=== PATIENT | female | born 1945 | race Caucasian/White ===

== ENCOUNTER 2016-07-27 09:58 | Outpatient (CLI) | payer MEDICARE ==
--- NOTE | 2016-07-24 12:32 | CT Report ---
CT OF THE ABDOMEN AND PELVIS WITH AND WITHOUT CONTRAST: 07/24/2016 CLINICAL INDICATION: Metastatic left breast cancer restaging. TECHNIQUE: Axial CT images of the abdomen and pelvis were obtained prior to and following 100 mL of I sovue-300 intravenously, as requested. Oral contrast was also administered. COMPARISON: 04/04/2015. FINDINGS: ABDOMEN: Small nonobstructing renal calculi are noted on the unenhanced exam. The kidneys demonstrate symmetric uptake and excretion of contrast. The liver, spleen, pancreas, and adrenal glands appear u nremarkable. The gallbladder is not dilated. No bowel dilatation, free gas, or free fluid is present. No abdominal adenopathy is seen. PELVIS: The appendix is seen in the right lower quadrant, and is normal in caliber. Sigmoid diverticu losis is present, without CT evidence of diverticulitis. No pelvic adenopathy or free fluid is presen t. The osseous structures demonstrate sclerotic metastatic disease. IMPRESSION: BONY METASTATIC DISEASE. SMALL NONOBSTRUCTING RENAL CALCULI. In accordance with CT protocol optimization, one or more of the following dose reduction techniques w ere utilized for this exam: automated exposure control, adjustment of mA and/or KV based on patient size, or use of iterative reconstructive technique. JOB #: [id number] EXT JOB #:[id number]
--- NOTE | 2016-07-24 12:41 | CT Report ---
CT CHEST WITH AND WITHOUT CONTRAST: 07/24/2016 CLINICAL INDICATION: Metastatic left breast cancer. TECHNIQUE: As requested, axial CT images of the chest were obtained prior to and following 100 mL Is ovue-300 intravenously. In accordance with CT protocol optimization, one or more of the following dose reduction techniques w ere utilized for this exam: automated exposure control, adjustment of mA and/or KV based on patient size, or use of iterative reconstructive technique. COMPARISON: 03/10/2015 FINDINGS: The heart and great vessels demonstrate atherosclerotic calcifications. Previously seen a bnormal anterior mediastinal soft tissue has decreased in prominence. No new hilar or mediastinal ly mphadenopathy is present. Previously seen mass in the lateral left breast appears unchanged. Abnorm al appearing left axillary lymph node is again noted. The lungs again demonstrate multifocal atelect asis. The 6-mm nodule in the right upper lobe is stable (axial image 16). Other previously describe d ground-glass opacities have resolved. No effusion or pneumothorax is present. Blastic metastatic disease is again noted. Please also refer to separate CT of the abdomen and pelvis. IMPRESSION: STABLE NODULE IN THE POSTERIOR RIGHT UPPER LOBE. STABLE SCATTERED ATELECTASIS. STABLE APPEARANCE OF MASS IN THE LATERAL LEFT BREAST AND ABNORMAL LEFT AXILLARY LYMPH NODE. JOB #: [id number] EXT JOB #:[id number]
[~2016-07-27 09:58] MED LIST: IOPAMIDOL-300 100 ML VIAL IVP ONE; IOPAMIDOL-300 50 ML VIAL PO ONE
== END 2016-07-27 09:59 | disposition home or self-care (01) ==
LOC: DI 09:58
PROVIDERS: ATTEND Internal Medicine Hematology & Oncology
DX: C50.912 Malignant neoplasm of unspecified site of left female breast (principal); C79.51 Secondary malignant neoplasm of bone; C78.00 Secondary malignant neoplasm of unspecified lung; N20.0 Calculus of kidney; J98.11 Atelectasis
CPT/HCPCS: 71270; 74178; 78306; A9503; Q9967

== ENCOUNTER 2017-05-25 09:45 | Outpatient (CLI) | payer MEDICARE, MEDICAID ==
[2017-05-25] MEDS ORDERED: IOPAMIDOL-300 50 ML VIAL ONE (10:02)
[2017-05-25] MEDS ORDERED: IOPAMIDOL-300 100 ML VIAL ONE (10:02)
[2017-05-25] MEDS ORDERED: IOPAMIDOL-300 50 ML VIAL PO ONE (12:42)
[2017-05-25] MEDS ORDERED: IOPAMIDOL-300 100 ML VIAL IVP ONE (12:42)
--- NOTE | 2017-05-25 12:47 | CT Report ---
CT CHEST WITH CONTRAST: 05/25/2017 CLINICAL INDICATION: Metastatic breast cancer. TECHNIQUE: Axial CT images of the chest were obtained with 100 mL Isovue 300 intravenously. COMPARISON: 07/24/2016. FINDINGS: The heart and great vessels demonstrate atherosclerotic calcification. No hilar or mediastinal lymphadenopathy is present. The previously noted tiny nodule in the posterior right upper lobe is stable. No new nodule is seen. Scattered atelectasis is present. No effusion or pneumothorax is seen. Osseous structures demonstrate sclerotic foci and degenerative changes without significant interval change. IMPRESSION: NO SIGNIFICANT INTERVAL CHANGE. CT DOSE REDUCTION STATEMENT In accordance with CT protocol optimization, one or more of the following dose reduction techniques were utilized for this exam: automated exposure control, adjustment of mA and/or KV based on patient size, or use of iterative reconstructive technique. TD: 05/25/2017 12:45 MTDD
--- NOTE | 2017-05-25 12:49 | CT Report ---
CT ABDOMEN AND PELVIS WITH CONTRAST: 05/25/2017 CLINICAL INDICATION: Metastatic breast cancer. COMPARISON: 07/24/2016. TECHNIQUE: Axial CT images of the abdomen and pelvis were obtained with 100 mL Isovue 300 intravenously as well as oral contrast. FINDINGS: ABDOMEN: The liver, spleen, pancreas, kidneys and adrenal glands appear unremarkable. The gallbladder is not dilated. No bowel dilatation, free gas, or free fluid is present. No abdominal adenopathy is present. PELVIS: The appendix is seen in the right lower quadrant, and is normal in caliber. Colonic diverticulosis is present, without CT evidence of diverticulitis. No pelvic adenopathy or free fluid is present. Osseous structures demonstrate degenerative changes and sclerotic foci, compatible with osseous metastatic disease, not significantly changed from previous. IMPRESSION: STABLE BONY DISEASE. NO SIGNIFICANT INTERVAL CHANGE. CT DOSE REDUCTION STATEMENT In accordance with CT protocol optimization, one or more of the following dose reduction techniques were utilized for this exam: automated exposure control, adjustment of mA and/or KV based on patient size, or use of iterative reconstructive technique. TD: 05/25/2017 12:47
== END 2017-05-25 09:46 | disposition home or self-care (01) ==
LOC: DI 09:45
PROVIDERS: ATTEND Internal Medicine Hematology & Oncology
DX: C50.912 Malignant neoplasm of unspecified site of left female breast (principal); C79.9 Secondary malignant neoplasm of unspecified site
CPT/HCPCS: 71260; 74177; Q9967

== ENCOUNTER 2017-05-27 09:17 | Outpatient (CLI) | payer MEDICARE, MEDICAID ==
--- NOTE | 2017-05-27 14:53 | Nuclear Medicine Report ---
EXAM: BONE SCAN EXAM DATE: 05/27/2017 01:26 PM. CLINICAL HISTORY: METASTATIC BREAST CANCER. COMPARISON: CT chest/abdomen/pelvis 05/25/2017. Bone scan 07/27/2016. TECHNIQUE: Following the intravenous administration of 31.7 mCi of technetium 99m MDP and an appropri ate delay, a whole-body scan was performed in anterior and posterior projections. Site-specific spot views of the region of interest were obtained in various projections. FINDINGS: Normal renal radiotracer uptake and bladder activity. Normal soft tissue activity. Overall normal osseous uptake. Multiple foci of uptake suspicious for metastatic disease: There is multilevel thoracic spinal uptake most conspicuous at T3, T7, and T12, new at the T3 level. There is similar sternal uptake. There is increased uptake at the right sacrum seen posteriorly and left posterior ilium. There is new focal uptake in the lumbar spine at approximately L2 seen anteriorly. IMPRESSION: 1. There is evidence of mildly progressive osseous metastatic disease, as described above. [facility] Referring Provider Line: [phone] SITE ID: [id number]
== END 2017-05-27 09:18 | disposition home or self-care (01) ==
LOC: DI 09:17
PROVIDERS: ATTEND Internal Medicine Hematology & Oncology
DX: C50.912 Malignant neoplasm of unspecified site of left female breast (principal); C79.51 Secondary malignant neoplasm of bone
CPT/HCPCS: 78306; A9503

== ENCOUNTER 2017-11-16 17:17 | Outpatient (CLI) | payer MEDICARE, MEDICAID ==
--- NOTE | 2017-11-16 20:13 | Ultrasound Report ---
Reason: OCCLUSION AND STENOSIS OF BILATERAL CAROTID ARTERI Procedure Date: 11/16/2017 Accession Number: [id number] / [id number] Procedure: US - Carotid Doppler Complete CPT Code: FULL RESULT: EXAM: BILATERAL CAROTID AND VERTEBRAL ARTERY DUPLEX DOPPLER ULTRASOUND. EXAM DATE: 11/16/2017 06:59 PM CLINICAL HISTORY: Occlusion and stenosis of bilateral carotid arteries. COMPARISON: CTA neck 03/09/2015. TECHNIQUE: Grayscale imaging, color Doppler, and duplex spectral Doppler were used to evaluate the carotid and vertebral arteries bilaterally. Static images were obtained. FINDINGS: Moderate heterogeneous plaquing on the right. Complete occlusion of the left internal carotid artery. Normal antegrade flow is present in bilateral vertebral arteries. VELOCITIES (cm/sec): Right CCA mid: PSV 48 cm/sec CCA dist: PSV 51 cm/sec ICA prox: PSV 166 cm/sec, EDV 33 cm/sec ICA mid: PSV 121 cm/sec, EDV 29 cm/sec ICA dist: PSV 57 cm/sec, EDV 24 cm/sec ECA: PSV 161 cm/sec Vert: PSV 69 cm/sec ICA/CCA: 3.25 Left CCA mid: PSV 47 cm/sec CCA dist: PSV 49 cm/sec ICA prox: Occluded ICA mid: Occluded ICA dist: Occluded ECA: PSV 123 cm/sec Vert: PSV 58 cm/sec ICA diameter stenosis: Right: 50-69% right ICA stenosis by velocity criteria. Left: Chronic occlusion of the left ICA. IMPRESSION: 1. Moderate heterogeneous right carotid artery plaquing. 2. In the right internal carotid artery there is a 50-69% stenosis by velocity criteria. 3. Chronic left ICA occlusion. 4. Normal antegrade flow is present in bilateral vertebral arteries. General Recommendations: Stenosis =50% ICA - Follow-up ultrasound 6-12 months Stenosis <50% ICA - High Risk Patient with plaque - Follow-up ultrasound 1-2 years Normal Study but High Risk Patient - Follow-up ultrasound 3-5 years Management recommendations and diagnostic criteria are based on current IAC endorsed standards in Carotid Artery Stenosis: Grayscale and Doppler Ultrasound Diagnosis. Validated velocity measurements with angiographic measurements and velocity criteria are extrapolated from diameter data as defined by the Society of Radiologists in Ultrasound Consensus Conference Radiology 2003; 229;340-346. [facility] The call report notification system was initiated by Dr. Avel Mckeon at 19:23 hrs on 11/16/17. The above findings were discussed with Jakob Santos by Dr. Avel Mckeon at 20:11 hrs on 11/16/17.
== END 2017-11-16 17:18 | disposition home or self-care (01) ==
LOC: DI 17:17
PROVIDERS: ATTEND Family Medicine
DX: I65.23 Occlusion and stenosis of bilateral carotid arteries (principal)
CPT/HCPCS: 93880

== ENCOUNTER 2018-03-14 10:09 | Outpatient (CLI) | payer MEDICAID, MEDICARE ==
[2018-03-14] MEDS ORDERED: IOVERSOL 320 50 ML VIAL ONE (10:19)
[2018-03-14] MEDS ORDERED: IOVERSOL 320 100 ML VIAL IVP ONE ×2 (10:19→12:15)
[2018-03-14] MEDS ORDERED: IOVERSOL 320 50 ML VIAL PO ONE (12:15)
--- NOTE | 2018-03-14 13:27 | CT Report ---
Reason: L BREAST CANCER Procedure Date: 03/14/2018 Accession Number: [id number] / [id number] Procedure: CT - Abdomen/Pelvis W/ CPT Code: FULL RESULT: EXAM: CT CHEST, ABDOMEN AND PELVIS EXAM DATE: 03/14/2018 12:13 PM. CLINICAL HISTORY: Left breast cancer. COMPARISONS: ABDOMEN/PELVIS W/ 05/25/2017 11:29 AM. CHEST W/ 05/25/2017 11:29 AM. CHEST W/O 03/10/2015 11:31 AM. TECHNIQUE: Routine helical CT imaging was performed through the chest, abdomen, and pelvis. IV contrast: OPTI 320 90 mL. Enteric contrast: Yes. Reconstructions: Coronal and sagittal. In accordance with CT protocol optimization, one or more of the following dose reduction techniques were utilized for this exam: automated exposure control, adjustment of mA and/or KV based on patient size, or use of iterative reconstructive technique. FINDINGS: Lungs/Pleura: 6 mm right upper lobe nodule is stable dating back to 03/10/2015, benign. Similarly, a perifissural nodularity on image 25 series 2 in the right major fissure likely represents a normal lymph node and is stable. There are no suspicious right lung nodules. Patchy changes in the left lung are stable compared to May 2017 and likely represent scarring, possibly treatment related. There are no suspicious left lung nodules. There is no pleural effusion or pneumothorax. Mediastinum: Normal. No adenopathy or masses. Musculoskeletal and soft tissue thorax: Postsurgical changes in the left breast are stable. Postsurgical changes in the left axilla are also stable. The largest left axillary node measures 0.7 x 1.0 cm, previously 0.8 x 1.0 cm on image 30 series 2. Liver: Normal. Gallbladder/Bile Ducts: Unremarkable. Spleen: Normal. Pancreas: Normal. Adrenal Glands: Normal. Kidneys: Normal. No masses or hydronephrosis. Peritoneal Cavity/Bowel: Descending colonic diverticulosis without diverticulitis. No free fluid, free air or adenopathy. No masses or acute inflammatory process. Pelvic Organs: Sigmoid diverticulosis without diverticulitis. The bladder and visualized pelvic organs are within normal limits. Vasculature: Atherosclerotic disease with prior stenting of left common femoral artery. 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 Differences in appearance are possibly treatment related. For comparison of active disease, recommend bone scan. Other: None. IMPRESSION: Stable posttreatment appearance of the chest. No evidence of visceral metastatic disease to the abdomen and pelvis. Similar appearance of diffuse osteoblastic skeletal disease. For evaluation of this, recommend bone scan. [facility]
--- NOTE | 2018-03-15 09:01 | Nuclear Medicine Report ---
Reason: L BREAST CANCER Procedure Date: 03/14/2018 Accession Number: [id number] / [id number] Procedure: NM - Bone Whole Body CPT Code: FULL RESULT: EXAM: BONE SCAN EXAM DATE: 03/14/2018 02:48 PM. CLINICAL HISTORY: L BREAST CANCER. COMPARISON: BONE SCAN 05/27/2017 12:54 PM ABDOMEN/PELVIS W03/14/2018 11:59 AM CHEST W03/14/2018 11:59 AM. TECHNIQUE: Following the intravenous administration of 29.5 mCi of technetium 99m MDP and an appropriate delay, a whole-body scan was performed in anterior and posterior projections. Site-specific spot views of the region of interest were obtained in various projections. FINDINGS: Normal renal radiotracer uptake and bladder activity. Normal soft tissue activity. Overall normal osseous uptake. Multiple foci of uptake suspicious for metastatic disease, as before: New focal uptake at the right frontal calvarium. Multilevel thoracic and lumbar spinal uptake, increased at the mid to upper cyst thoracic levels, new at approximately L2. Increased uptake at the left posterior ilium, left upper and right lower sacrum. New focal uptake at the periacetabular left ischium. New focal uptake at the right distal femoral metaphysis, left femoral diaphysis. Increased sternal uptake. New focal uptake at right posterior fifth rib, right anterior sixth rib, focal uptake at the inferior angle of the left scapula or possibly underlying rib. IMPRESSION: 1. Multifocal osseous metastatic disease with evidence of interval progression, as described above. [facility]
== END 2018-03-14 10:10 | disposition home or self-care (01) ==
LOC: DI 10:09
PROVIDERS: ATTEND Internal Medicine Hematology & Oncology
DX: C50.912 Malignant neoplasm of unspecified site of left female breast (principal); C79.51 Secondary malignant neoplasm of bone; C78.00 Secondary malignant neoplasm of unspecified lung
CPT/HCPCS: 71260; 74177; 78306